=== PATIENT | female | born 1950 | race Caucasian/White ===

== ENCOUNTER → 2018-01-13 10:20 | Outpatient (CLI) | payer MEDICARE, OTHER, SELFPAY ==
--- NOTE | 2018-01-13 10:23 | DI.NM.S_ITS ---
PROCEDURE: [place] BONE SCAN WHOLE BODY RADIOPHARMACEUTICAL: 20.3 mCi Tc-99m MDP IV. INDICATIONS: BREAST CANCER TECHNIQUE: Delayed whole-body scintigrams were obtained approximately 3-4 hours after intravenous injection of radiotracer. Anterior and posterior views were acquired from vertex to feet. Additional left and right oblique views of the facial area was obtained. COMPARISON: [facility], CT, CHEST/ABD/PEL WITH CONTRAST, 12/01/2016, 12:08. [facility], MR, BRAIN W&WO CONTRAST, 09/09/2016, 8:00. [place], [place], BONE SCAN WHOLE BODY, 05/20/2016, 13:23. [place], BONE SCAN WHOLE BODY, 01/31/2016, 14:21. FINDINGS: There has been a interval increase in the asymmetric right greater than left maxillary and midline isotope uptake involving the facial area, in this patient with recent prior MR scanning dated 09/09/16 showing almost complete total opacification of the right maxillary sinus by concentric mucosal thickening. The pattern of midline involvement suggests ethmoid air cell inflammation, in addition to prominent maxillary sinus inflammation. Note is made of subtle increased isotope uptake at several points along the right posterior ribs, previously present and likely traumatic in origin from the past given the adjacent orientation. There is increased isotope uptake at the greater trochanter region of the left hip, in an area that contained a small sclerotic focus on CT scanning 12/01/16. This would be worrisome for representing slowly progressive metastatic disease. IMPRESSION: Increased facial area isotope uptake right greater than left and also at the midline. 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 Dedicated sinus CT is recommended. 2. There is abnormal isotope uptake in area of prior small sclerotic bone lesion at the greater trochanter of the left hip, from a CT scan in November of last year. Recommend repeat assessment of that area by noncontrast CT scanning to determine whether progression of osteoblastic metastatic disease is present. Dictated by: Victor M Cheney M.D. on 01/13/2018 at 16:29 Approved by: Victor M Cheney M.D. on 01/13/2018 at 16:36
== END ==
PROVIDERS: Family Provider Internal Medicine; PCP Internal Medicine; Visit Provider Internal Medicine Hematology & Oncology
DX: C50.919 Malignant neoplasm of unspecified site of unspecified female breast (principal); C79.51 Secondary malignant neoplasm of bone; J32.4 Chronic pansinusitis
CPT/HCPCS: 78306; A9503

== ENCOUNTER → 2018-01-25 10:12 | Outpatient (CLI) | payer MEDICARE, OTHER, SELFPAY ==
--- NOTE | 2018-01-25 10:34 | DI.CT.S_ITS ---
PROCEDURE: CT CHEST ABD PEL W CON INDICATIONS: Breast cancer restaging and assess response to treatment. TECHNIQUE: After the administration of oral and intravenous contrast, 5 mm thick sections acquired from the lung apices to the symphysis. 5 mm coronal and sagittal reformats were performed, with additional 7 mm coronal MIP reformats through the lungs. For radiation dose reduction, the following was used: automated exposure control, adjustment of mA and/or kV according to patient size. COMPARISON: [facility], CT, CHEST/ABD/PEL WITH CONTRAST, 08/21/2017, 10:20. FINDINGS: Image quality: Excellent. CHEST: Lungs and pleura: 4 mm groundglass pulmonary nodule in the right upper lobe on axial image 35, series 2 is unchanged from 08/21/17. Redemonstrated anterior left upper lobe calcified granuloma.. No acute airspace opacities. No pleural effusions or pneumothorax. Central and peripheral airways appear patent and normal in caliber. Mediastinum: Heart size is normal. No pericardial effusion. No mediastinal or hilar adenopathy by size criteria. Thoracic aorta and central pulmonary arteries are normal in size, with the aorta and branch vessels demonstrating moderate calcified and noncalcified plaque burden. Esophagus is normal in caliber. There is a small hiatal hernia. Chest wall: No axillary or supraclavicular adenopathy by size criteria. Thyroid gland is unchanged from prior exam. Right chest port tip terminates within the superior vena cava. There is unchanged mild skin thickening of the left breast. A foreign body/biopsy clip projects within the lateral left breast. ABDOMEN: Solid organs: Interval increase in size of a poorly defined inferior anterior right hepatic hypoattenuating lesion, which now measures 8 mm in greatest diameter (previously 5 mm, hepatic segment 5). There has been interval development of a new 0.8 cm poorly defined hypoattenuating lesion in the anterior superior right hepatic lobe (hepatic segment 8, axial image 55 of series 3). Gallbladder is unremarkable.. Biliary system is non dilated. Pancreas enhances normally. Spleen is normal in size and enhancement. Bilateral adrenal nodules are stable. Kidneys enhance symmetrically with no hydronephrosis seen. Peritoneum and bowel: Bowel loops demonstrate normal wall thickness and caliber. No free fluid or air. Nodes and vessels: No retroperitoneal or mesenteric adenopathy by size criteria. Miscellaneous: No ventral hernias. PELVIS: Genitourinary: Bladder wall thickness is normal. Miscellaneous: No inguinal hernias or adenopathy. Bones: Unchanged posterior right seventh and eighth healed rib fractures. Previously identified sclerotic lesion within the sternum appears increased in size from prior exam, now measuring up to 1.5 cm in transverse diameter (previously 0.9 cm on 08/21/17). Sclerotic lesions within the T8 vertebral body, L2 vertebral body, sacral body, and pelvic bones are stable in appearance when compared with prior exam. No vertebral body compression fractures are identified. IMPRESSION: #1. New poorly defined 0.8 cm hypoattenuating mass in the anterior superior right hepatic lobe and mild interval growth of the poorly defined 0.8 cm hypoattenuating mass in the anterior inferior right hepatic lobe are concerning for progressive hepatic metastases. Attention on followup exams recommended. #2. Slight interval increase in size of the sclerotic metastasis within the sternum. Remaining bone metastases are unchanged from prior exam. #3. Stable 4 mm right upper lobe groundglass pulmonary nodule. Dictated by: Donny Melvin M.D. on 01/25/2018 at 11:52 Approved by: Donny Melvin M.D. on 01/25/2018 at 12:02
== END ==
PROVIDERS: PCP Internal Medicine; Visit Provider Internal Medicine Hematology & Oncology
DX: C50.919 Malignant neoplasm of unspecified site of unspecified female breast (principal); C79.51 Secondary malignant neoplasm of bone; R16.0 Hepatomegaly, not elsewhere classified; R91.1 Solitary pulmonary nodule
CPT/HCPCS: 36592; 71260; 74177; Q9967